=== PATIENT | male | born 1985 | race Caucasian/White ===

== ENCOUNTER 2017-04-06 14:43 | Emergency (ER) | payer OTHER ==
[~2017-04-06] VITALS: Ht 170.2 cm; Wt 83.0 kg
[2017-04-06 14:50] VITALS: BP 138/86
[2017-04-06 15:55] LABS: BLOOD UREA NITROGEN 15 mg/dL (7-18)
== END 2017-04-06 17:01 | disposition home or self-care (01) ==
LOC: ED 16:50
DX: R20.2 Paresthesia of skin (principal)
CPT/HCPCS: 36415; 80048; 82040; 84439; 84443; 85025; 99284